=== PATIENT | male | born 1955 | race Caucasian/White ===

== ENCOUNTER 2019-02-13 11:15 | Outpatient (CLI) | payer OTHER | END 2019-02-13 11:27 | disposition home or self-care (01) | LOC: RAD 11:15 | DX: R07.89 Other chest pain (principal) ==

== ENCOUNTER → 2019-02-13 12:32 | Outpatient (CLI) | payer OTHER | END | disposition home or self-care (01) | LOC: LAB 12:32 | DX: N40.0 Benign prostatic hyperplasia without lower urinary tract symptoms (principal) ==

== ENCOUNTER 2020-06-03 12:23 | Outpatient (CLI) | payer OTHER | END 2020-06-03 12:29 | disposition home or self-care (01) | LOC: RAD 12:23 | DX: R91.8 Other nonspecific abnormal finding of lung field (principal) ==

== ENCOUNTER 2021-05-17 08:00 | Outpatient (CLI) | payer OTHER | END 2021-05-17 08:30 | disposition home or self-care (01) | LOC: PPH VACUNA 08:00 | PROVIDERS: ATTEND Emergency Medicine Pediatric Emergency Medicine | DX: Z23 Encounter for immunization (principal) ==

== ENCOUNTER 2021-12-08 08:00 | Outpatient (CLI) | payer OTHER | END 2021-12-08 08:30 | disposition home or self-care (01) | LOC: PPH VACUNA 08:00 | PROVIDERS: ATTEND Emergency Medicine Pediatric Emergency Medicine | DX: Z23 Encounter for immunization (principal) ==

== ENCOUNTER 2022-09-06 12:24 | Outpatient (CLI) | payer OTHER | END 2022-09-06 12:34 | disposition home or self-care (01) | LOC: PPH VACUNA 12:24 | PROVIDERS: ATTEND Emergency Medicine Pediatric Emergency Medicine | DX: Z23 Encounter for immunization (principal) ==

== ENCOUNTER 2023-09-04 08:48 | Outpatient (CLI) | payer OTHER | END 2023-09-04 09:01 | disposition home or self-care (01) | LOC: SONOGRAMA 08:48 | DX: N40.0 Benign prostatic hyperplasia without lower urinary tract symptoms (principal) ==